=== PATIENT | female | born 1950 | race Hispanic/Latino ===

== ENCOUNTER → 2019-02-19 | Outpatient (CLI) | payer BC | END | disposition home or self-care (01) | LOC: OIH 15:30 | PROVIDERS: ATTEND Internal Medicine | DX: I10 Essential (primary) hypertension (principal); Q25.49 Other congenital malformations of aorta | CPT/HCPCS: 71046 ==

== ENCOUNTER → 2021-05-31 | Outpatient (CLI) | payer OTHER ==
[~2021-05-31] MED LIST: REGADENOSON 0.4 MG/5 ML PF SYG IVP SCH
== END | disposition home or self-care (01) ==
LOC: SHCH 07:55
PROVIDERS: ATTEND Internal Medicine Cardiovascular Disease
DX: R06.09 Other forms of dyspnea (principal); R07.9 Chest pain, unspecified
CPT/HCPCS: 78452; 93017; 96374; A9500 ×2; J2785

== ENCOUNTER 2021-06-15 07:33 | Day surgery (SDC) | payer OTHER ==
[2021-06-13 13:11] LABS: BASOPHILS % (AUTO) 0.4 % (0.0-5.0); EOSINOPHILS % (AUTO) 2.1 % (0.0-8.0); HEMATOCRIT 34.1 % (36-48); LYMPHOCYTES % (AUTO) 24.9 % (21.0-51.0); MEAN CORPUSCULAR HEMOGLOBIN 28.9 pg (27.0-33.0); MEAN CORPUSCULAR HGB CONC 31.7 g/dL (32.0-36.0); MEAN CORPUSCULAR VOLUME 91.2 fL (79-99); MONOCYTES % (AUTO) 6.5 % (3.0-13.0); NEUTROPHILS % (AUTO) 65.7 % (40.0-77.0); PLATELET COUNT (AUTO) 139 K/uL (130-400); RED BLOOD CELL COUNT(AUTO) 3.74 MIL/uL (4.00-5.50); RED CELL DISTRIBUTION WIDTH 13.1 % (11.0-15.5); WHITE BLOOD COUNT (AUTO) 6.8 K/uL (4.8-10.8)
[2021-06-13 13:16] LABS: APPEARANCE,URINE Clear (CLEAR); BILIRUBIN,URINE Negative (NEGATIVE); COLOR,URINE Yellow (YELLOW); GLUCOSE, URINE (UA) 250 mg/dL (NEGATIVE); KETONES,URINE Negative (NEGATIVE); LEUKOCYTE ESTERASE ,URINE Negative (NEGATIVE); NITRATE,URINE Negative (NEGATIVE); OCCULT BLOOD,URINE Negative (NEGATIVE); PROTEIN,URINE Negative (NEGATIVE); UROBILINOGEN,URINE 0.2 mg/dL (0.2-1.0)
[2021-06-13 13:25] LABS: CREATININE 1.1 mg/dL (0.5-1.5); POTASSIUM 4.7 mmol/L (3.5-5.1)
[2021-06-13 13:29] LABS: INR 1.05 (0.85-1.15); PROTHROMBIN TIME 11.4 SEC (9.6-11.6)
[2021-06-13 13:30] LABS: PARTIAL THROMBOPLASTIN TIME 24.5 SEC (26.3-35.5)
[2021-06-13 13:35] LABS: BACTERIA,URINE None Seen /HPF (None Seen); RBC,URINE None Seen /HPF (0-1); SQUAMOUS EPITHELIAL CELL,UR Rare /HPF (0-2); WBC,URINE 0-1 /HPF (0-1)
[2021-06-14 10:12] VITALS: BP 140/79
[2021-06-15] VITALS (11 sets, daily range): BP systolic 99–149; BP diastolic 47–92
[~2021-06-15] VITALS: Ht 154.9 cm; Wt 79.7 kg
[~2021-06-15 07:33] MED LIST changes: +ASPI-1443 PO; +ATOR20TA65 PO; +DOCU100T PO; +FERR-72 PO; +GABA-529 PO; +INSU3INS9 SQ; +LISI1TAB29 PO; +LORA10TA7 PO; +METO-408 PO; +PIOG15TA66 PO; -REGADENOSON 0.4 MG/5 ML PF SYG IVP SCH
[2021-06-15] MEDS ORDERED: 0.9%NACL 1000ML 1,000 ML IV ONE (07:43)
[2021-06-15] MEDS ORDERED: METF-446 PO (08:26)
[2021-06-15] MEDS ORDERED: IOHEXOL-350 50ML VIAL IV ONE (09:42)
[2021-06-15] MEDS ORDERED: IOHEXOL-350 75 ML VIAL IV ONE (09:42)
[2021-06-15] MEDS ORDERED: LIDOCAINE HCL 400MG/20ML VIAL ONE (09:43)
[2021-06-15] MEDS ORDERED: MIDAZOLAM HCL 1 MG/ML 2ML VIAL ONE (09:43)
[2021-06-15] MEDS ORDERED: GLUCAGON 1MG KIT 1 MG ML IM PRN (11:00)
[2021-06-15] MEDS ORDERED: DEXTROSE 50%-WATER 50 ML DISP.SYRIN IV PRN (11:00)
== END 2021-06-15 15:10 | disposition home or self-care (01) ==
LOC: DAH 07:33
PROVIDERS: ATTEND Internal Medicine Cardiovascular Disease
DX: I35.0 Nonrheumatic aortic (valve) stenosis (principal); I20.9 Angina pectoris, unspecified; E11.22 Type 2 diabetes mellitus with diabetic chronic kidney disease; I12.9 Hypertensive chronic kidney disease with stage 1 through stage 4 chronic kidney disease, or unspecified chronic kidney disease; N18.31 Chronic kidney disease, stage 3a; E78.5 Hyperlipidemia, unspecified; E11.21 Type 2 diabetes mellitus with diabetic nephropathy; E11.43 Type 2 diabetes mellitus with diabetic autonomic (poly)neuropathy; Z82.49 Family history of ischemic heart disease and other diseases of the circulatory system; Z83.3 Family history of diabetes mellitus; Z79.899 Other long term (current) drug therapy; Z79.01 Long term (current) use of anticoagulants; Z79.82 Long term (current) use of aspirin; Z79.84 Long term (current) use of oral hypoglycemic drugs
CPT/HCPCS: 36415; 71045; 80048; 81001; 82948 ×2; 85025; 85610; 85730; 93005; 93454; A4215; A4216; A4221; A4222; A4223 ×3; A4606; A4663; C1760; C1894; J1644; J2250; J3490; J7030; Q9967 ×2; 99156; 99157

== ENCOUNTER → 2021-07-13 | Outpatient (CLI) | payer OTHER ==
[~2021-07-13] MED LIST changes: +METF-446 PO
[2021-07-13 09:37] LABS: CREATININE 0.8 mg/dL (0.5-1.5)
== END | disposition home or self-care (01) ==
LOC: LAB 08:22
PROVIDERS: ATTEND Internal Medicine Cardiovascular Disease
DX: I35.0 Nonrheumatic aortic (valve) stenosis (principal); I20.9 Angina pectoris, unspecified; E78.5 Hyperlipidemia, unspecified; E11.21 Type 2 diabetes mellitus with diabetic nephropathy; E11.43 Type 2 diabetes mellitus with diabetic autonomic (poly)neuropathy; N18.31 Chronic kidney disease, stage 3a; I51.7 Cardiomegaly; R07.9 Chest pain, unspecified
CPT/HCPCS: 36415; 82565; 84520

== ENCOUNTER → 2021-07-17 | Outpatient (CLI) | payer OTHER, MEDICARE ==
[~2021-07-17] MED LIST changes: +IOHEXOL 350 MG/ML 100ML INFUS..BTL IV ONE
== END | disposition home or self-care (01) ==
LOC: RAH 07:44
PROVIDERS: ATTEND Internal Medicine Cardiovascular Disease
DX: I35.0 Nonrheumatic aortic (valve) stenosis (principal); N28.89 Other specified disorders of kidney and ureter
CPT/HCPCS: 74174; 75574; Q9967

== ENCOUNTER → 2023-10-01 | Outpatient (CLI) | payer OTHER, MEDICARE ==
[~2023-10-01] MED LIST changes: -IOHEXOL 350 MG/ML 100ML INFUS..BTL IV ONE; -LISI1TAB29 PO; +LISI1TAB53 PO
== END | disposition home or self-care (01) ==
LOC: SHCH 14:39
PROVIDERS: ATTEND Internal Medicine Cardiovascular Disease
DX: I35.0 Nonrheumatic aortic (valve) stenosis (principal)
CPT/HCPCS: 93306

== ENCOUNTER → 2025-01-11 | Outpatient (CLI) | payer OTHER, MEDICARE ==
--- NOTE | 2025-01-12 08:19 | HMCSR ---
APPROVED REPORT EXAM: Two-dimensional and M-mode echocardiogram with Doppler and color Doppler. INDICATION ICD: Z95.2 Presence of prosthetic heart valve Surgery/Intervention Valve Replacement: Bioprosthetic Type: TAVR 2D Dimensions RVDd3.3 cmLVEF(%)51.1 (>50%)LVED Vol(simp.)119.0 mL IVSd1.3 (0.7-1.1cm)FS(%)26 %LVES Vol(simp.)60.0 mL LVDd4.9 (3.8-5.6cm)IVC diam1.2 cmLVEF(%, simp.)50 % PWd1.4 (0.7-1.1cm)LA ESV INDEX (BP)31.68 mL/m2 LVDs3.6 (2.5-4.0cm) Aortic Valve AoV Vmax2.5 m/Gamal Peak GR25.5 mmHgLVOT Vmax1.2 m/s AoV VTI0.5 mAo Mean GR13.7 mmHgLVOT VTI0.26 m Al P1/2T542 ms Mitral Valve MV E Vmax83.8 cm/sDECEL Ucnu545 ms MV A Lsff237.9 cm/sP 1/2 T52 ms E/A ratio0.6MVA (PHT)4.2 cm2 TDI E/E' Bfreyg82.3E/E' Bqkpaiz83.3 Pulmonary Valve PV Vmax1.5 m/sPV VTI0.28 mPV Mean GR5 mmHg PV Peak GR8.7 mmHg Tricuspid Valve TR Vmax2.5 m/sRAP (EST) 3 ynPgEZQL24.9 mmHg TR Peak GR24.9 mmHg Left Ventricle Left ventricular cavity size is normal. Paradoxical septal motion consistent with conduction abnormal ity. There is mild to moderate concentric left ventricular hypertrophy. LVEF is 50-55%. Grade 1 diast olic dysfunction Right Ventricle The right ventricle is normal size. The right ventricular systolic function is normal. Atria The left atrium size is normal. The right atrium size is normal. Aortic Valve TAVR valve is present. Trace aortic regurgitation. AV Dimensionless Index is 0.51 Mean gradient of 1 3.7 mmHg. Mitral Valve Mitral valve leaflets are mildly sclerotic but open well. Mitral regurgitation is trace. There is no mitral valve stenosis. Tricuspid Valve The tricuspid valve leaflets appear normal. There is trace tricuspid regurgitation. Pulmonic Valve Pulmonic valve is not well visualized. Great Vessels The aortic root is not well visualized but is probably normal size. The IVC is normal in size and col lapses >50% with inspiration. Pericardium No pericardial effusion. Conclusion There is mild to moderate concentric left ventricular hypertrophy. LVEF is 50-55%. Grade 1 diastolic dysfunction Paradoxical septal motion consistent with conduction abnormality. Trace aortic regurgitation. Mean gradient of 13.7 mmHg.
== END | disposition home or self-care (01) ==
LOC: SHCH 15:01
PROVIDERS: ATTEND Internal Medicine Cardiovascular Disease
DX: I34.0 Nonrheumatic mitral (valve) insufficiency (principal); Z95.2 Presence of prosthetic heart valve
CPT/HCPCS: 93306